=== PATIENT | male | born 1975 | race Caucasian/White ===

== ENCOUNTER → 2016-10-12 | Outpatient (REF) | payer BC, OTHER | LOC: M LAB REF 16:30 | PROVIDERS: ATTEND Family Medicine | DX: E78.5 Hyperlipidemia, unspecified (principal) ==

== ENCOUNTER → 2017-10-02 | Outpatient (REF) | payer BC ==
[2017-10-03 17:28] LABS: LDL DIRECT 75 mg/dL (0-99)
== END ==
LOC: M LAB REF 13:19
DX: E78.5 Hyperlipidemia, unspecified (principal); E78.1 Pure hyperglyceridemia

== ENCOUNTER → 2019-01-28 | Outpatient (REF) | payer BC | LOC: M LAB REF 12:13 | PROVIDERS: ATTEND Registered Nurse | DX: L73.1 Pseudofolliculitis barbae (principal) ==

== ENCOUNTER 2019-06-25 20:38 | Observation (INO) | payer BC ==
[~2019-06-25] VITALS: Ht 185.4 cm; Wt 114.6 kg
[2019-06-25] MEDS ORDERED: LANTINJ4 SC (21:03)
[2019-06-25] MEDS ORDERED: OZEM2INJ2 SC (21:03)
[2019-06-25] MEDS ORDERED: METF-839 PO (21:03)
[2019-06-25] MEDS ORDERED: CITA10TA5 PO (21:03)
[2019-06-25] MEDS ORDERED: OMEP1CAP73 PO (21:03)
[2019-06-25] MEDS ORDERED: ATEN100T PO (21:03)
[2019-06-25 21:22] LABS: BASO % 0.2 % (0.0-1.0); EOS # 0.1 10^3/uL (0.0-0.5); EOS % 1.4 % (0.0-3.0); HEMATOCRIT 42.2 % (42.0-52.0); HEMOGLOBIN 14.2 g/dl (13.5-17.5); LYMPH % 22.5 % (24.0-44.0); MEAN CORPUSCULAR HEMOGLOBIN 27.8 pg (27.0-33.0); MEAN CORPUSCULAR HGB CONC 33.6 g/dl (32.0-36.5); MEAN CORPUSCULAR VOLUME 82.6 fl (80.0-96.0); MONO # 0.6 10^3/uL (0.0-0.8); NEUTROPHILS # 6.1 10^3/uL (1.5-8.5); NEUTROPHILS % 67.8 % (36.0-66.0); PLATELET COUNT, AUTOMATED 285 10^3/uL (150-450); RED BLOOD COUNT 5.11 10^6/uL (4.30-6.10)
--- NOTE | 2019-06-25 21:52 | REPVR ---
PROCEDURE INFORMATION: Exam: CT Head Without Contrast Exam date and time: 06/25/2019 9:34 PM Age: 44 years old Clinical indication: Injury or trauma; Fall; Initial encounter; Blunt trauma (contusions or hematomas) TECHNIQUE: Imaging protocol: Computed tomography of the head without contrast. Radiation optimization: All CT scans at this facility use at least one of these dose optimization techniques: automated exposure control; mA and/or kV adjustment per patient size (includes targeted exams where dose is matched to clinical indication); or iterative reconstruction. COMPARISON: No relevant prior studies available. FINDINGS: Brain: Small benign-appearing calcification associated with the right tentorial leaflet. No hemorrhage. Unremarkable white matter. No mass effect. Ventricles: Normal. No ventriculomegaly. Bones/joints: Unremarkable. No acute fracture. Sinuses: Small mucous retention cysts in the paranasal sinuses. Remaining paranasal sinuses are clear. Mastoid air cells: Visualized mastoid air cells are well aerated. Soft tissues: Unremarkable. IMPRESSION: No acute intracranial abnormality. Electronically signed by: Francis Oneill On 06/25/2019 21:52:55 PM
[2019-06-25 21:57] LABS: INR 1.09; PROTHROMBIN TIME 13.8 SECONDS (11.8-14.0)
--- NOTE | 2019-06-25 21:57 | REPVR ---
PROCEDURE INFORMATION: Exam: CT Cervical Spine Without Contrast Exam date and time: 06/25/2019 9:34 PM Age: 44 years old Clinical indication: Injury or trauma; Fall; Initial encounter; Blunt trauma TECHNIQUE: Imaging protocol: Computed tomography images of the cervical spine without contrast. Radiation optimization: All CT scans at this facility use at least one of these dose optimization techniques: automated exposure control; mA and/or kV adjustment per patient size (includes targeted exams where dose is matched to clinical indication); or iterative reconstruction. COMPARISON: No relevant prior studies available. FINDINGS: Vertebrae: No acute fracture. Normal alignment. Mild endplate spurring. No spinal stenosis. Soft tissues: Unremarkable. Lungs: Lung apices are normal. IMPRESSION: No fracture or malalignment. Electronically signed by: Francis Oneill On 06/25/2019 21:56:40 PM
[2019-06-25 21:58] LABS: PARTIAL THROMBOPLASTIN TIME 26.1 SECONDS (25.0-38.4)
[2019-06-25 22:03] LABS: ALBUMIN 3.9 GM/DL (3.2-5.2); ALT/SGPT 44 U/L (12-78); BILIRUBIN,DIRECT 0.1 MG/DL (0.0-0.2); BILIRUBIN,TOTAL 0.4 MG/DL (0.2-1.0); BLOOD UREA NITROGEN 11 MG/DL (7-18); CALCIUM LEVEL 8.7 MG/DL (8.5-10.1); CARBON DIOXIDE LEVEL 26 MEQ/L (21-32); CHLORIDE LEVEL 102 MEQ/L (98-107); CK-MB VALUE MASS 3.3 NG/ML (<3.6); CPK CREATINE PHOSPHOKINASE 182 U/L (39-308); CREATININE FOR GFR 1.05 MG/DL (0.70-1.30); FREE T4 1.04 NG/DL (0.76-1.46); GLOMERULAR FILTRATION RATE > 60.0 (>60); GLUCOSE, FASTING 174 MG/DL (70-100); MB/CK RELATIVE INDEX 1.81 (< OR =4); POTASSIUM SERUM 3.9 MEQ/L (3.5-5.1); SODIUM LEVEL 138 MEQ/L (136-145); TOTAL PROTEIN 7.3 GM/DL (6.4-8.2); TROPONIN I < 0.02 NG/ML (< 0.10)
--- NOTE | 2019-06-25 22:03 | REPVR ---
PROCEDURE INFORMATION: Exam: CT Lumbar Spine Without Contrast Exam date and time: 06/25/19 (9:36pm) Age: 44 years old Clinical indication: Fall. Initial encounter. Blunt trauma (contusions or hematomas). TECHNIQUE: Imaging protocol: Computed tomography images of the lumbar spine without contrast. Radiation optimization: All CT scans at this facility use at least one of these dose optimization techniques: automated exposure control; mA and/or kV adjustment per patient size (includes targeted exams where dose is matched to clinical indication); or iterative reconstruction. COMPARISON: No relevant prior studies available FINDINGS: Vertebrae: No acute fracture. Normal alignment. L1-L2: No disc herniation. No spinal canal stenosis. No neural foraminal narrowing. L2-L3: No disc herniation. No spinal canal stenosis. No neural foraminal narrowing. L3-L4: No disc herniation. No spinal canal stenosis. No neural foraminal narrowing. L4-L5: No disc herniation. No spinal canal stenosis. No neural foraminal narrowing. L5-S1: No disc herniation. No spinal canal stenosis. No neural foraminal narrowing. Soft tissues: Scattered abdominal aortic calcifications. IMPRESSION: No acute traumatic pathology. Electronically signed by: Alia Hanna On 06/25/2019 22:02:46 PM
--- NOTE | 2019-06-25 22:10 | REPVR ---
PROCEDURE INFORMATION: Exam: CT Thoracic Spine Without Contrast Exam date and time: 06/25/19 (9:36pm) Age: 44 years old Clinical indication: Fall. Initial encounter. Blunt trauma (contusions or hematomas). TECHNIQUE: Imaging protocol: Computed tomography images of the thoracic spine without contrast. Radiation optimization: All CT scans at this facility use at least one of these dose optimization techniques: automated exposure control; mA and/or kV adjustment per patient size (includes targeted exams where dose is matched to clinical indication); or iterative reconstruction. COMPARISON: No relevant prior studies available FINDINGS: FINDINGS: Vertebrae: No acute fracture. Mild scoliosis. Discs/Spinal canal: No significant spinal canal stenosis. Soft tissues: Unremarkable. Other findings: Posterior left renal cyst (2.5 cm size) (at midpole level). IMPRESSION: No acute traumatic pathology. Electronically signed by: Alia Hanna On 06/25/2019 22:10:27 PM
[2019-06-25] MEDS ORDERED: NS 1,000 ML IV ONE (22:15)
[2019-06-26] MEDS ORDERED: ACETAMINOPHEN TAB 650MG DOSE (2X325MG) PO ONE
[2019-06-26] MEDS: NS 1,000 ML IV SCH ×3 (00:19→10:27)
[2019-06-26 00:43] LABS: AMPHETAMINES LEVEL URINE NEGATIVE (NEGATIVE); BARBITURATES URINE NEGATIVE (NEGATIVE); BENZODIAZEPINES URINE NEGATIVE (NEGATIVE); CANNABINOIDS URINE NEGATIVE (NEGATIVE); COCAINE METABOLITE URINE NEGATIVE (NEGATIVE); METHADONE URINE NEGATIVE (NEGATIVE); OPIATES URINE NEGATIVE (NEGATIVE); PHENCYCLIDINE URINE NEGATIVE (NEGATIVE)
--- NOTE | 2019-06-26 01:12 | HPEPDOC ---
[facility] Medical History & Physical Date of Admission Jun 26, 2019 Date of Service: Jun 26, 2019 Primary Care Physician: MIKKI MORGAN M.D. Attending Physician: LEISA LOPEZ MD History and Physical TIME OF SERVICE: 1:12 AM CHIEF COMPLAINT: Loss of consciousness HISTORY OF PRESENT ILLNESS: This is a 44-year-old gentleman who came in after losing consciousness while shopping in [place]; prior to the event he remembers seeing dark spots, the next thing he remembers is being in the ambulance on the way to the hospital. He denies having any preceding palpitations, chest pain, shortness of breath, fever, chills, nausea, vomiting, or diarrhea. He denies ever having a similar event in the past. REVIEW OF SYSTEMS: 12 point review of systems negative except as listed in HPI PAST MEDICAL/ SURGICAL HISTORY: DM2 GERD Anxiety Umbilical hernia repair History of PVCs ?/tachycardia managed with beta blockers SOCIAL HISTORY: Quit smoking Quit drinking Uses THC FAMILY HISTORY: CVA IPF Atrial fibrillation ALLERGIES: Please see below. HOME MEDICATIONS: Please see below. PHYSICAL EXAMINATION: VITAL SIGNS: Please see below. GEN: well-nourished / well developed/ NAD INTEGUMENT: He has dried blood around his nares / he has flat keloid scar below his umbilicus HEENT: NCAT / lips acyanotic /mucus membranes moist and pink / hematoma of the tongue CVS: RRR/NMRG/ no lower extremity edema LUNGS: no coughing / lungs are clear to auscultation bilaterally on room air ABDOMEN: Contour ( obese, distended) /soft & not tender with palpation MSK/EXTREMITIES: range of motion intact in all 4 extremities NEURO: CN 2-12 are grossly intact / speech is not dysarthric / strength 5 out of 5 in upper and lower extremities PSYCH: alert and oriented to person place and time/ able to understand and follow all commands LABORATORY DATA: Immature Granulocyte % (Auto) 1.1, Neutrophils (%) (Auto) 67.8H, Lymphocytes (%) (Auto) 22.5L, Monocytes (%) (Auto) 7.0H, Eosinophils (%) (Auto) 1.4, Basophils (%) (Auto) 0.2, Neutrophils # (Auto) 6.1, Lymphocytes # (Auto) 2.0, Monocytes # (Auto) 0.6, Eosinophils # (Auto) 0.1, Basophils # (Auto) 0.0, Nucleated Red Blood Cells % (auto) 0.0, Prothrombin Time 13.8, Prothromb Time International Ratio 1.09, Activated Partial Thromboplast Time 26.1, Anion Gap 10, Glomerular Filtration Rate > 60.0, Calcium Level 8.7, Total Bilirubin 0.4, Direct Bilirubin 0.1, Aspartate Amino Transf (AST/SGOT) 35, Alanine Aminotransferase (ALT/SGPT) 44, Alkaline Phosphatase 85, Total Creatine Kinase 182, Creatine Kinase MB 3.3, Creatine Kinase MB Relative Index 1.81, Troponin I < 0.02, Total Protein 7.3, Albumin 3.9, Albumin/Globulin Ratio 1.15, Thyroid Stimulating Hormone (TSH) 1.260, Free Thyroxine 1.04 06/26/19 00:03: Urine Color YELLOW, Urine Appearance CLEAR, Urine pH 6.0, Urine Specific [place] 1.020, Urine Protein 1+H, Urine Glucose (UA) NEGATIVE, Urine Ketones TRACEH, Urine Blood NEGATIVE, Urine Nitrite NEGATIVE, Urine Bilirubin NEGATIVE, Urine U robilinogen 0.2, Urine Leukocyte Esterase NEGATIVE, Urine WBC (Auto) 1, Urine RBC (Auto) 0, Urine Hyaline Casts (Auto) 0, Urine Bacteria (Auto) NEGATIVE, Urine Squamous Epithelial Cells 0, Urine Mucus (Auto) SMALL, Urine Sperm (Auto) , Urine Opiates Screen NEGATIVE, Urine Methadone Screen NEGATIVE, Urine Barbiturates Screen NEGATIVE, Urine Phencyclidine Screen NEGATIVE, Urine Amphetamines Screen NEGATIVE, Urine Benzodiazepines Screen NEGATIVE, Urine Cocaine Metabolite Screen NEGATIVE, Urine Cannabinoids Screen NEGATIVE IMAGING: CT head "IMPRESSION: No acute intracranial abnormality. " CT cervical spine "IMPRESSION: No fracture or malalignment. " CT thoracic spine "IMPRESSION: No acute traumatic pathology." CT lumbar spine "IMPRESSION: No acute traumatic pathology." ASSESSMENT: Mr. Yeh is a 44-year-old with a history of NIDDM, PVCs?, anxiety and GERD who is admitted for evaluation of syncope. PLAN: 1. Syncope vs Syncopal Seizure ? Orthostats, troponin and EKG are unrevealing [place] Syncope Risk Score to determine 30 day risk of serious adverse events in patients w syncope = 2points = medium risk Initial workup including CT of the head blood work, troponin and EKG are unr evealing Plan: Admit to medical floor for observation / f/u orthostats / telemetry/ follow-up prolactin/the daytime team can determine if additional testing is warranted in the morning 2. PVCs - atenolol 3. DM2 - diabetic diet / f/u accuchecks & A1C / hypoglycemia protocol / sliding scale insulin / glyburide, glargine metformin and Ozempic 4. GERD - PPI 5. Obesity with BMI of 34.2 - can f/u w his or her PCP for STOP BANG questionnaire, health insurance adjuster consult / recommend cardiovascular exercise for 40 min 4-5 days a week DVT PROPHYLAXIS: SCDs DISPOSITION: likely dc home after less than 2 midnight's stay Home Medications Scheduled Atenolol (Atenolol) 100 Mg Tablet, 100 MG PO DAILY Atorvastatin Calcium (Atorvastatin Calcium) 10 Mg Tablet, 10 MG PO DAILY Citalopram Hydrobromide (Citalopram HBr) 10 Mg Tablet, 10 MG PO DAILY Glimepiride (Glimepiride) 4 Mg Tablet, 4 MG PO BID Insulin Glargine,Hum.rec.anlog (Lantus Solostar) 100 Unit/1 Ml Insuln.pen, 60 UNITS SC DAILY Metformin HCl (Metformin HCl) 1,000 Mg Tablet, 1,000 MG PO BID Omeprazole (Omeprazole) 20 Mg Capsule.dr, 20 MG PO DAILY Semaglutide (Ozempic) 1 Mg/0.75 Ml Pen.injctr, 1 MG SC 1XWK SUNDAY Allergies Coded Allergies: No Known Allergies (Unverified , 06/25/19) A-FIB/CHADSVASC A-FIB History Current/History of A-Fib/PAF?: No Current PO Anticoag Therapy: No LEISA LOPEZ MD Jun 26, 2019 01:12
[2019-06-26] MEDS ORDERED: IBUPROFEN 600 MG TAB PO ONE (01:15)
[2019-06-26] MEDS ORDERED: METF-877 PO (01:41)
[2019-06-26] MEDS ORDERED: ATEN100T PO (01:41)
[2019-06-26] MEDS ORDERED: GLIM4TAB5 PO (01:41)
[2019-06-26] MEDS ORDERED: ATOR1TAB19 PO (01:46)
[2019-06-26] MEDS ORDERED: GLUCAGON FOR INJ 1 MG VIAL (J1610) SC PRN (02:00)
[2019-06-26] MEDS ORDERED: GLUCOSE 4 GM CHEW TABLET PO PRN (02:00)
[2019-06-26] MEDS ORDERED: DEXTROSE 50% 50 ML SYRINGE IV PRN (02:00)
[2019-06-26 02:23] LABS: HEMOGLOBIN A1c 6.2 %
[2019-06-26 02:39] VITALS: BP 148/79
[2019-06-26] MEDS: GLIMEPIRIDE 2 MG TAB PO SCH ×3 (04:09→21:20)
[2019-06-26] MEDS: metFORMIN (GLUCOPHAGE) 1000 MG TABLET PO SCH ×3 (04:09→21:20)
[2019-06-26] MEDS: ACETAMINOPHEN TAB 650MG DOSE (2X325MG) PO PRN ×2 (04:29→09:14)
--- NOTE | 2019-06-26 05:45 | ECGEPIP ---
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
[2019-06-26 07:34] VITALS: BP 166/82
--- NOTE | 2019-06-26 08:19 | REP ---
Chest x-ray: Two views. History: Syncope . Comparison study: No comparison study . Findings: The lungs are well inflated and free of infiltrate. The pleural angles are sharp. The heart size is normal. Pulmonary vasculature is not increased. No significant bony abnormality is seen. Monitoring electrodes are visible. Impression: Negative chest x-ray. Electronically Signed by Harshal White MD 06/26/2019 08:10 A
[2019-06-26] MEDS: LEVEMIR (INSULIN DETEMIR) 1 UNITS/0.01ML SC SCH (09:08)
[2019-06-26] MEDS: HumaLOG INSULIN (NovoLOG) PER UNIT SC SCH ×3 (09:12→17:26)
[2019-06-26] MEDS: ATORVASTATIN 10 MG TAB PO SCH (09:13)
[2019-06-26] MEDS: OMEPRAZOLE 20 MG CAP PO SCH (09:13)
[2019-06-26] MEDS: CitaloPRAM (CeleXA) 10 MG TABLET PO SCH (09:13)
[2019-06-26] MEDS: atenoloL 50 MG TAB PO SCH (09:13)
[2019-06-26] MEDS: DOCUSATE SODIUM 100 MG CAP PO SCH ×2 (09:14→21:00)
[2019-06-26 10:45] LABS: PROLACTIN 36.8 NG/ML (2.1-17.7)
[2019-06-26] MEDS ORDERED: levETIRAcetam 250MG TABLET (KEPPRA) PO ONE (11:30)
[2019-06-26 13:47] VITALS: BP 137/86
[2019-06-26 20:08] VITALS: BP 161/108
[2019-06-26] MEDS ORDERED: HumaLOG INSULIN (NovoLOG) PER UNIT SC SCH (21:00)
--- NOTE | 2019-06-26 21:07 | REPVR ---
PROCEDURE INFORMATION: Exam: MR Head Without Contrast Exam date and time: 06/26/2019 8:53 PM Age: 44 years old Clinical indication: Other: Seizure TECHNIQUE: Imaging protocol: MR of the head without contrast. COMPARISON: CT Head without contrast 06/25/2019 9:31 PM FINDINGS: Brain: There is no evidence of infarct, johnson-white matter differentiation is preserved. There is no hemorrhage or extra-axial collection. There is no mass. DWI demonstrates no evidence of acute infarct. Coronal images demonstrate no temporal lobe abnormality or asymmetry. Ventricles: Normal. No ventriculomegaly. Bones/joints: Unremarkable. Soft tissues: Unremarkable. Sinuses: Normal as visualized. No acute sinusitis. Mastoid air cells: Normal as visualized. No mastoid effusion. Orbits: Unremarkable. IMPRESSION: No intracranial lesion or injury. Electronically signed by: Michele Quintero On 06/26/2019 21:06:54 PM
[2019-06-26] MEDS: levETIRAcetam 250MG TABLET (KEPPRA) PO SCH (21:20)
[2019-06-26 21:24] VITALS: BP 124/88
[2019-06-26] MEDS ORDERED: LIDOCAINE 5% (LIDODERM) PATCH TD SCH (22:45)
[2019-06-27 06:00] VITALS: BP 128/80
[2019-06-27] MEDS: HumaLOG INSULIN (NovoLOG) PER UNIT SC SCH ×2 (07:29→12:00)
[2019-06-27] MEDS ORDERED: LIDOCAINE 5% (LIDODERM) PATCH TD SCH (09:00)
[2019-06-27] MEDS: LEVEMIR (INSULIN DETEMIR) 1 UNITS/0.01ML SC SCH (09:00)
[2019-06-27] MEDS ORDERED: **NOTE PATIENT COMMENT** MISC XX SCH (09:00)
[2019-06-27] MEDS: OMEPRAZOLE 20 MG CAP PO SCH (09:24)
[2019-06-27] MEDS: metFORMIN (GLUCOPHAGE) 1000 MG TABLET PO SCH (09:24)
[2019-06-27] MEDS: levETIRAcetam 250MG TABLET (KEPPRA) PO SCH (09:25)
[2019-06-27] MEDS: CitaloPRAM (CeleXA) 10 MG TABLET PO SCH (09:25)
[2019-06-27] MEDS: ACETAMINOPHEN TAB 650MG DOSE (2X325MG) PO PRN (09:25)
[2019-06-27 09:26] VITALS: BP 128/80
[2019-06-27] MEDS: atenoloL 50 MG TAB PO SCH (09:26)
[2019-06-27] MEDS: GLIMEPIRIDE 2 MG TAB PO SCH (09:26)
[2019-06-27] MEDS: DOCUSATE SODIUM 100 MG CAP PO SCH (09:26)
[2019-06-27] MEDS: ATORVASTATIN 10 MG TAB PO SCH (09:27)
[2019-06-27] MEDS ORDERED: KEPP250T5 PO (10:45)
--- NOTE | 2019-06-27 13:12 | DS.PDOC ---
Discharge Summary General Date of Admission Jun 25, 2019 at 20:39 Date of Discharge 06/27/19 Attending Physician: LATIA GONZALEZ MD Discharge Summary PROCEDURES PERFORMED DURING STAY: None. ADMITTING DIAGNOSES: 1. Syncope, possible seizure DISCHARGE DIAGNOSES: 1. Syncope, possible seizure. COMPLICATIONS/CHIEF COMPLAINT: Syncope. HISTORY OF PRESENT ILLNESS: 44-year-old diabetic male was admitted for syncopal episode. Patient had tongue biting with elevated prolactin levels, syncope, was unwitnessed, no prior episodes. Based on patient's presentation and lab work it is possible that he seized, MRI brain was negative. Patient was started on Keppra, will be discharged on 500 mg twice a day. Patient is advised to follow with PCP and neurologist for further evaluation to see if Keppra needs to be continued. Patient was evaluated by physical therapy and cleared for discharge home. Patient is clinically and hemodynamically stable for discharge at this time. HOSPITAL COURSE: As above. DISCHARGE MEDICATIONS: Please see below. ALLERGIES: Please see below. PHYSICAL EXAMINATION: VITAL SIGNS: Please see below. GENERAL: No distress HEENT: Normocephalic, atraumatic, moist mucous membranes NECK: Supple CARDIOVASCULAR EXAMINATION: S1, S2, no murmurs RESPIRATORY EXAMINATION: Clear to auscultation, no wheezing ABDOMINAL EXAMINATION: Soft, nontender, nondistended, positive bowel sounds EXTREMITIES: Range of motion intact SKIN: No rash NEUROLOGICAL EXAMINATION: Alert and oriented 3, no focal deficits PSYCHIATRIC EXAMINATION: Calm and cooperative LABORATORY DATA: Please see below. IMAGING: MRI brain negative for acute pathology PROGNOSIS: Good ACTIVITY: As tolerated. DIET: Cardiac with consistent carbs DISCHARGE PLAN: Follow with PCP and neurologist in 1-2 weeks DISPOSITION: Home. DISCHARGE INSTRUCTIONS: 1. As above. DISCHARGE CONDITION: Stable. TIME SPENT ON DISCHARGE: Greater than 28 minutes. Vital Signs/I&Os Vital Signs Date Time Temp Pulse Resp B/P (MAP) Pulse Ox O2 Delivery O2 Flow Rate FiO2 06/27/19 09:26 87 128/80 06/27/19 06:00 99.3 20 97 Room Air I&O- Last 24 Hours up to 6 AM 06/27/19 05:59 Intake Total 1260 ml Output Total 0 ml Balance 1260 ml Laboratory Data Labs 24H Laboratory Tests 2 06/26/19 16:26: Bedside Glucose (Misc Panel) 54L 06/26/19 17:01: Bedside Glucose (Misc Panel) 99 06/26/19 20:09: Bedside Glucose (Misc Panel) 95 06/27/19 07:17: Bedside Glucose (Misc Panel) 78 06/27/19 11:56: Bedside Glucose (Misc Panel) 86 FSBS Laboratory Tests Test 06/26/19 16:26 06/26/19 17:01 06/26/19 20:09 06/27/19 07:17 Range/Units Bedside Glucose (Misc Panel) 54 99 95 78 70-105 MG/DL Test 06/27/19 11:56 Range/Units Bedside Glucose (Misc Panel) 86 70-105 MG/DL Discharge Medications Scheduled Atenolol (Atenolol) 100 Mg Tablet, 100 MG PO DAILY, (Reported) Atorvastatin Calcium (Atorvastatin Calcium) 10 Mg Tablet, 10 MG PO DAILY, (Reported) Citalopram Hydrobromide (Citalopram HBr) 10 Mg Tablet, 10 MG PO DAILY, (Reported) Glimepiride (Glimepiride) 4 Mg Tablet, 4 MG PO BID, (Reported) Insulin Glargine,Hum.rec.anlog (Lantus Solostar) 100 Unit/1 Ml Insuln.pen, 60 UNITS SC DAILY, (Reported) Levetiracetam (Keppra) 250 Mg Tablet, 500 MG PO BID Metformin HCl (Metformin HCl) 1,000 Mg Tablet, 1,000 MG PO BID, (Reported) Omeprazole (Omeprazole) 20 Mg Capsule.dr, 20 MG PO DAILY, (Reported) Semaglutide (Ozempic) 1 Mg/0.75 Ml Pen.injctr, 1 MG SC 1XWK, (Reported) SUNDAY Allergies Coded Allergies: No Known Allergies (Unverified , 06/25/19) LATIA GONZALEZ MD Jun 27, 2019 13:12
[2019-06-29] MEDS ORDERED: OZEMPIC 1 MG SC SCH (09:00)
== END 2019-06-27 13:20 | disposition home or self-care (01) ==
LOC: M ED 20:38 → M ED INP 20:39 → ENRESERVTM 06-26 01:40 → ENRESERVDT 06-26 01:40 → ENRESERVTM 06-26 01:52 → ENRESERVDT 06-26 01:52 → M PCU 06-26 02:43 → M MSPAV 06-26 14:15
PROVIDERS: ADMIT Internal Medicine; ATTEND Internal Medicine
DX: R55 Syncope and collapse (principal); S01.512A Laceration without foreign body of oral cavity, initial encounter; W01.0XXA Fall on same level from slipping, tripping and stumbling without subsequent striking against object, initial encounter; Y92.512 Supermarket, store or market as the place of occurrence of the external cause; E11.9 Type 2 diabetes mellitus without complications; I10 Essential (primary) hypertension; K21.9 Gastro-esophageal reflux disease without esophagitis; F41.9 Anxiety disorder, unspecified; R00.0 Tachycardia, unspecified; E66.9 Obesity, unspecified; Z68.34 Body mass index [BMI] 34.0-34.9, adult; Z79.899 Other long term (current) drug therapy; Z79.4 Long term (current) use of insulin; Z87.891 Personal history of nicotine dependence

== ENCOUNTER → 2020-06-03 | Outpatient (REF) | payer BC ==
[~2020-06-03] MED LIST: ATEN100T PO; ATOR1TAB19 PO; CITA10TA5 PO; GLIM4TAB5 PO; KEPP250T5 PO; LANTINJ4 SC; METF-839 PO; METF-877 PO; OMEP1CAP73 PO; OZEM2INJ2 SC
== END ==
LOC: M LAB REF 16:19
PROVIDERS: ATTEND Family Medicine
DX: D64.9 Anemia, unspecified (principal)

== ENCOUNTER → 2020-06-04 | Outpatient (CLI) | payer BC ==
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
== END ==
LOC: M WUC 11:22
PROVIDERS: ATTEND Family Medicine
DX: M54.5 Low back pain (principal)

== ENCOUNTER → 2020-06-15 | Outpatient (CLI) | payer BC ==
--- NOTE | 2020-06-15 10:16 | REP ---
INDICATION: SEVERE LOW BACK PAIN, XRAY SHOWS COMPRESSION FX?. COMPARISON: 06/25/2019 TECHNIQUE: Axial noncontrast images of the lumbosacral spine from mid T12 through mid sacrum with coronal and sagittal reformations. This CT examination was performed using the following dose reduction techniques: Automated exposure control, adjustment of mA and/or kv according to the patient's size, and use of iterative reconstruction technique. FINDINGS: There is a compression fracture at L1 with approximately 45% loss anterior/superior vertebral body height with sclerotic changes to the vertebral body and approximately 4.5 mm of retropulsion and associated mild canal stenosis when compared with 06/25/2019. A subtle compression deformity involving the superior aspect of T12 with associated sclerosis, vacuum phenomenon, and approximately 5% loss of vertebral body height is suggested. L2, L3, and L4 demonstrate increased sclerosis and concavity along the superior endplates which represents an obvious change from 06/25/2019 with very minimal loss of vertebral body height suggesting subtle compression injuries. No associated retropulsion or obvious canal stenosis noted. There is increased sclerosis, concavity and cortical irregularity along the superior endplate of L5 with approximately 10% loss of central vertebral body height also consistent with compression injury. No associated retropulsion or obvious canal stenosis noted. IMPRESSION: Nonacute compression deformities most notably involving L1, but with obvious changes also involving T12 and L2-L5 as compared with 06/25/2019 which appeared relatively normal. <Electronically signed by Augustus Polanco > 06/15/20 [id number]
== END ==
LOC: M RAD 09:40
PROVIDERS: ATTEND Family Medicine
DX: S32.010A Wedge compression fracture of first lumbar vertebra, initial encounter for closed fracture (principal); M48.00 Spinal stenosis, site unspecified

== ENCOUNTER → 2020-09-30 | Outpatient (REF) | payer BC | LOC: M LAB REF 12:16 | PROVIDERS: ATTEND Family Medicine | DX: D64.9 Anemia, unspecified (principal) ==

== ENCOUNTER → 2020-12-08 | Outpatient (REF) | payer BC ==
[2020-12-08 17:35] LABS: PERCENT SATURATION 10.4 % (19.7-50.0)
== END ==
LOC: M LAB REF 16:39
PROVIDERS: ATTEND Family Medicine
DX: D64.9 Anemia, unspecified (principal)

== ENCOUNTER → 2020-12-14 | Outpatient (CLI) | payer BC ==
--- NOTE | 2020-12-15 09:40 | REPVR ---
PROCEDURE INFORMATION: Exam: MR Thoracic Spine Without Contrast Exam date and time: 12/14/2020 8:19 AM Age: 45 years old Clinical indication: Pain in thoracic spine; Without myelpathy or radiculopathy; Additional Info: PAIN IN T SPINE, LUMBAR DISC DEGENERATION TECHNIQUE: Imaging protocol: Multiplanar magnetic resonance images of the thoracic spine without intravenous contrast. COMPARISON: CT Spine,thoracic w/o contrast 06/25/2019 9:35 PM FINDINGS: Vertebrae: Subacute Schmorl's node formation is present at the superior endplate of L1, superimposed on moderate subacute to chronic compression fracture deformity of the vertebral body, with approximately 50% loss of vertebral body height. The superior posterior vertebral body margin is buckled and retropulsed approximately 4 mm which results in impression on the ventral thecal sac. The conus medullaris lies just cephalad to this level and is not contacted by the vertebral body buckling. Chronic mild compression fracture deformity of T12 is present at the superior endplate, appearing in association with Schmorl's node formation. This is new since the comparison CT exam. There is also interval development of Schmorl's node formation with mild superior endplate compression deformity at T9, T10, and T11 since the 2019 study, but findings are chronic without associated marrow edema. Sagittal plane alignment is anatomic without spondylolisthesis. Spinal cord: The thoracic spinal cord demonstrates normal signal intensity and caliber. There is no cord edema or myelomalacia. T1-T2: Mild bilateral neural foraminal stenosis secondary to facet arthropathy. No disc herniation. No central canal stenosis. T2-T3: Mild bilateral neural foraminal stenosis secondary to facet arthropathy. No disc herniation. No central canal stenosis. T3-T4: Mild bilateral neural foraminal stenosis secondary to facet arthropathy. No disc herniation. No central canal stenosis. T4-T5: The posterior disc contour is normal. There is no central canal or neural foraminal stenosis. T5-T6: The posterior disc contour is normal. There is no central canal or neural foraminal stenosis. T6-T7: The posterior disc contour is normal. There is no central canal or neural foraminal stenosis. T7-T8: Mild bilateral facet arthropathy.The posterior disc contour is normal. There is no central canal or neural foraminal stenosis. T8-T9: Bilateral facet arthropathy with minimal neural foraminal stenosis. No central canal stenosis or disc herniation. T9-T10: Trace, less than 2 mm disc bulge. No central canal or neural foraminal stenosis. Mild bilateral facet arthropathy. T10-T11: Moderate right and mild left neural foraminal stenosis secondary to facet arthropathy. Trace disc bulge. No central canal stenosis. T11-T12: Mild right neural foraminal stenosis secondary to facet arthropathy. No disc herniation or central canal stenosis. T12-L1: Mild bilateral facet arthropathy. Mild bilateral neural foraminal stenosis. No central canal stenosis or disc herniation. Soft tissues: Soft tissues in the prevertebral space are preserved. IMPRESSION: 1. Subacute to chronic moderate compression fracture of L1 with 50% loss of vertebral body height and superimposed subacute Schmorl's node at the superior endplate. Findings are new since the 2019 CT exam. 2. Superior posterior vertebral body margin buckling at L1 with approximately 4 mm retropulsion in association with the compression fracture but without contact of the conus medullaris or cauda equina. 3. Chronic Schmorl's nodes at the superior endplate of T9, T10, and T11, new since 2020. 4. Mild chronic compression deformity of T12 in association with Schmorl's node formation at the superior endplate. 5. Mild multilevel degenerative spondylosis without spinal canal compromise, as outlined in detail above. Electronically signed by: Brenda Andrade On 12/15/2020 09:40:15 AM
--- NOTE | 2020-12-15 12:06 | REPVR ---
PROCEDURE INFORMATION: Exam: MR Lumbar Spine Without Contrast Exam date and time: 12/14/2020 8:19 AM Age: 45 years old Clinical indication: Low back pain; Additional info: Pain in t spine, lumbar disc degeneration TECHNIQUE: Imaging protocol: Multiplanar magnetic resonance images of the lumbar spine without intravenous contrast. COMPARISON: CT Spine, lumbar w/o contrast 06/15/2020 9:52 AM FINDINGS: Vertebrae: Again seen are superior endplate compression deformities multiple vertebra. This is greatest L1 where there is mild stable bony retropulsion mildly effacing ventral subarachnoid space. There also compression deformities superior endplates L4, L5, and less marked at L2. T12, There is significant intervertebral herniation of disc into superior endplate at L1, L4 and L5. Spinal cord: Conus terminates at T12-L1 and appears normal in signal intensity without intrinsic or extrinsic lesion. L1-L2: There is no significant disc bulge. There is facet degeneration with facet joint fluid. There is no significant spinal stenosis. There is no significant neural foraminal narrowing. L2-L3: There is mild disc bulge. There is facet degeneration. There is no significant spinal stenosis. There is no significant neural foraminal narrowing. L3-L4: There is usce-bb-xpanegmd disc bulge. There is facet degeneration. There is no significant spinal stenosis. There is mild bilateral neural foraminal narrowing. L4-L5: There is moderate disc bulge and shallow central disc protrusion. There is facet degeneration with left facet joint fluid. There is no significant spinal stenosis. There is mild bilateral neural foraminal narrowing. L5-S1: There is mild disc bulge. There is facet degeneration. There is no significant spinal stenosis. There is no significant neural foraminal narrowing. Soft tissues: Unremarkable. IMPRESSION: 1. Multiple nonacute and stable compression deformities as described. 2. Mild overall degenerative changes. Electronically signed by: Melissa Bates On 12/15/2020 12:06:29 PM
== END ==
LOC: M RAD 07:18
PROVIDERS: ATTEND Physician Assistant
DX: R93.7 Abnormal findings on diagnostic imaging of other parts of musculoskeletal system (principal); M54.6 Pain in thoracic spine; M51.36 Other intervertebral disc degeneration, lumbar region

== ENCOUNTER → 2021-06-02 | Outpatient (REF) | payer BC ==
[~2021-06-02] MED LIST changes: -CITA10TA5 PO; +CITA10TA7 PO
== END ==
LOC: M LAB REF 16:19
PROVIDERS: ATTEND Family Medicine
DX: D64.9 Anemia, unspecified (principal)

== ENCOUNTER → 2021-08-04 | Outpatient (CLI) | payer BC ==
[~2021-08-04] MED LIST changes: +FERR325T3 PO; +OMEP40CA4 PO; +SEMA1PEN2 SQ
== END ==
LOC: M LABSMTC 10:29
PROVIDERS: ATTEND Anesthesiology
DX: Z01.818 Encounter for other preprocedural examination (principal); Z11.52 Encounter for screening for COVID-19

== ENCOUNTER 2021-08-08 09:01 | Day surgery (SDC) | payer BC ==
[~2021-08-08] VITALS: Ht 185.4 cm; Wt 113.8 kg
[~2021-08-08 09:01] MED LIST changes: +NS 1,000 ML IV ONE
[2021-08-08] MEDS ORDERED: fentaNYL 100 MCG/2 ML INJECTION As Ordered ONE (10:46)
[2021-08-08] MEDS ORDERED: GLYCOPYRROLATE INJ 0.2 MG/ML 2 ML VIAL As Ordered ONE (10:47)
[2021-08-08] MEDS ORDERED: LIDOCAINE 2% 100MG/5ML SDV (FOR ANES.) As Ordered ONE (10:47)
[2021-08-08] MEDS ORDERED: propofoL 200 MG/20 ML VIAL As Ordered ONE ×2 (10:47→11:08)
[2021-08-08 11:43] VITALS: BP 118/65
== END 2021-08-08 11:43 | disposition home or self-care (01) ==
LOC: M OPP 09:01
PROVIDERS: ATTEND Internal Medicine Gastroenterology
DX: D50.9 Iron deficiency anemia, unspecified (principal); K64.0 First degree hemorrhoids; K22.89 Other specified disease of esophagus; Z79.02 Long term (current) use of antithrombotics/antiplatelets; Z79.4 Long term (current) use of insulin; Z79.899 Other long term (current) drug therapy; Z87.891 Personal history of nicotine dependence
CPT/HCPCS: 43239; 45378; 88305; J3010

== ENCOUNTER → 2021-08-09 | Outpatient (REF) | payer BC ==
[~2021-08-09] MED LIST changes: -NS 1,000 ML IV ONE
== END ==
LOC: M LAB REF 16:16
PROVIDERS: ATTEND Family Medicine
DX: D64.9 Anemia, unspecified (principal)

== ENCOUNTER → 2021-11-01 | Outpatient (REF) | payer BC | LOC: M LAB REF 16:32 | PROVIDERS: ATTEND Family Medicine | DX: D64.9 Anemia, unspecified (principal) ==

== ENCOUNTER → 2022-05-04 | Outpatient (REF) | payer BC ==
[~2022-05-04] MED LIST changes: +BUPR1TAB52
== END ==
LOC: M LAB REF 16:00
PROVIDERS: ATTEND Family Medicine
DX: D64.9 Anemia, unspecified (principal)

== ENCOUNTER → 2023-03-22 | Outpatient (CLI) | payer BC, OTHER, SELFPAY | LOC: M RAD 11:52 | PROVIDERS: ATTEND Physician Assistant | DX: I83.93 Asymptomatic varicose veins of bilateral lower extremities (principal); I87.2 Venous insufficiency (chronic) (peripheral) ==

== ENCOUNTER → 2023-04-27 | Outpatient (CLI) | payer OTHER | LOC: M RAD 07:19 | PROVIDERS: ATTEND Internal Medicine Medical Oncology | DX: R10.9 Unspecified abdominal pain (principal) ==

== ENCOUNTER → 2023-05-04 | Outpatient (CLI) | payer OTHER ==
[~2023-05-04] MED LIST changes: +ISOVUE-370 76% 100ML VIAL As Ordered ONE
== END ==
LOC: M RAD 16:14
PROVIDERS: ATTEND Internal Medicine Medical Oncology
DX: E61.1 Iron deficiency (principal)
CPT/HCPCS: 74178; Q9967

== ENCOUNTER → 2023-05-08 | Outpatient (REF) | payer OTHER, BC ==
[~2023-05-08] MED LIST changes: -ISOVUE-370 76% 100ML VIAL As Ordered ONE
== END ==
LOC: M LAB REF 12:16
PROVIDERS: ATTEND Family Medicine
DX: D64.9 Anemia, unspecified (principal)

== ENCOUNTER → 2024-02-07 | Outpatient (REF) | payer OTHER, BC | LOC: M LAB REF 16:57 | PROVIDERS: ATTEND Family Medicine | DX: D64.9 Anemia, unspecified (principal) ==

== ENCOUNTER → 2025-02-18 | Outpatient (REF) | payer OTHER ==
[~2025-02-18] MED LIST changes: +BUPR-670; -BUPR1TAB52
== END ==
LOC: M LAB REF 12:37
PROVIDERS: ATTEND Family Medicine
DX: D64.9 Anemia, unspecified (principal)